=== PATIENT | male | born 1970 | race Caucasian/White ===

== ENCOUNTER → 2016-12-18 | Outpatient (CLI) | payer BC ==
--- NOTE | 2016-12-18 09:08 | DIAGNOSTIC IMAGING REPORT ---
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 COMPARISON: None. FINDINGS: Pancreas: Obscured by overlying bowel gas. Liver: Unremarkable. Gallbladder: No gallbladder wall thickening. No gallstones. CBD: 4 mm. Right kidney: No hydronephrosis. IMPRESSION: The pancreas was obscured by overlying bowel gas. Otherwise, no significant abnormality identified within the right upper quadrant. Electronically signed by: Magan Palacio M.D. 12/18/2016 9:06 AM Dictated Date/Time: 12/18/2016 9:05 AM
--- NOTE | 2016-12-18 09:32 | DIAGNOSTIC IMAGING REPORT ---
ULTRASOUND SOFT TISSUES RIGHT THIGH CLINICAL HISTORY: Skin neoplasm. COMPARISON STUDY: No priors. FINDINGS: Real-time grayscale sonography of the soft tissues of the right thigh is performed at the indicated site of interest. No sonographic abnormality is identified. [place] appearing subcutaneous fat is seen in this region. No mass or fluid collection is identified. IMPRESSION: Unremarkable sonographic assessment of the soft tissues of the right thigh at the site of interest specified by the patient. Electronically signed by: Miles Merrill M.D. 12/18/2016 9:30 AM Dictated Date/Time: 12/18/2016 9:29 AM
== END | disposition home or self-care (01) ==
LOC: C.ULTR 08:16
PROVIDERS: ATTEND Nurse Practitioner Family
DX: D48.5 Neoplasm of uncertain behavior of skin (principal); R10.11 Right upper quadrant pain

== ENCOUNTER → 2016-12-29 | Outpatient (CLI) | payer BC ==
[~2016-12-29] MED LIST: SINCALIDE IV SCH; SODIUM CHLORIDE 0.9% IV SCH
--- NOTE | 2016-12-29 13:06 | DIAGNOSTIC IMAGING REPORT ---
NUCLEAR MEDICINE HEPATOBILIARY SCAN WITH EJECTION FRACTION HISTORY: Pain. Nausea. RUQ PAIN COMPARISON: None. TECHNIQUE: Immediately following the intravenous administration of 5 mCi Tc-99m Choletec, dynamic anterior abdominal imaging pre/post 1.57 mcg of Kinevac was performed. FINDINGS: Uniform hepatic tracer accumulation is shown. Prompt intrahepatic biliary excretion is seen. The gallbladder, common bile duct, and small bowel are all visualized by 15 minutes minutes. This appearance represents the normal sequence of biliary excretion. The gallbladder ejection fraction following administration of Kinevac was 67 % (normal >35%). IMPRESSION: 1. No evidence for cystic duct obstruction. 2. Gallbladder ejection fraction calculated to be 67 %. Electronically signed by: Stuart Baker M.D. 12/29/2016 1:05 PM Dictated Date/Time: 12/29/2016 12:48 PM
== END | disposition home or self-care (01) ==
LOC: C.NUCL 10:09
PROVIDERS: ATTEND Nurse Practitioner Family
DX: R10.11 Right upper quadrant pain (principal)